=== PATIENT | male | born 1950 | race Caucasian/White ===

== ENCOUNTER 2016-09-24 07:07 | Day surgery (SDC) | payer OTHER ==
[~2016-09-24] VITALS: Ht 175.3 cm; Wt 92.3 kg
[2016-09-24] MEDS ORDERED: NEURONTIN600 MG/TAB PO (07:36)
[2016-09-24] MEDS ORDERED: SYNTHROID0.112 MG/T PO (07:37)
[2016-09-24] MEDS ORDERED: INDERAL 10MG10 MG PO (07:37)
[2016-09-24] MEDS ORDERED: REQUIP 1MG T1 MG/TAB PO (07:39)
[2016-09-24] MEDS ORDERED: PRILOSEC 20MG20 MG PO (07:39)
[2016-09-24] MEDS ORDERED: CELEXA40 MG PO (07:39)
[2016-09-24] MEDS ORDERED: COZAAR 50MG50 MG/TAB PO (07:40)
[2016-09-24] MEDS ORDERED: ULTRAM 50MG TAB50 MG (07:40)
[2016-09-24] MEDS ORDERED: ASPIRIN E.C. 8181 MG PO (07:41)
[2016-09-24 08:00] VITALS: BP 111/76; PULSE 44; TEMP 98
[2016-09-24 09:30] VITALS: BP 107/66; PULSE 58; TEMP 97.4
[2016-09-24 09:45] VITALS: BP 102/72; PULSE 55
[2016-09-24 14:43] VITALS: BP 108/64; PULSE 50
== END 2016-09-24 10:04 | disposition home or self-care (01) ==
LOC: SDCO 07:07
DX: Z12.11 Encounter for screening for malignant neoplasm of colon (principal); D12.0 Benign neoplasm of cecum; K57.30 Diverticulosis of large intestine without perforation or abscess without bleeding; I10 Essential (primary) hypertension; E11.9 Type 2 diabetes mellitus without complications; E07.9 Disorder of thyroid, unspecified; K21.9 Gastro-esophageal reflux disease without esophagitis
CPT/HCPCS: J2250; J3010; J7030

== ENCOUNTER 2017-06-01 08:45 | Inpatient (IN) | payer MEDICARE ==
[~2017-06-01] VITALS: Ht 175.3 cm; Wt 98.3 kg
[~2017-06-01 08:45] MED LIST: ASPIRIN E.C. 8181 MG PO; CELEXA40 MG PO; COZAAR 50MG50 MG/TAB PO; INDERAL 10MG10 MG PO; NEURONTIN600 MG/TAB PO; PRILOSEC 20MG20 MG PO; REQUIP 1MG T1 MG/TAB PO; SYNTHROID0.112 MG/T PO; ULTRAM 50MG TAB50 MG
[2017-06-01] MEDS ORDERED: CEPHALEXIN500 M1 PO (09:33)
[2017-06-01 10:17] LABS: BASO # 0.1 (0.0-0.2); BASO % 0.9 % (0.0-2.0); EOS # 0.2 (0.0-0.7); EOS % 2.3 % (0-4.0); GRAN # 6.9 (1.4-6.5); GRAN % 74.7 % (42.2-75.2); HEMATOCRIT 41.2 % (42.0-52.0); HEMOGLOBIN 13.7 g/dl (13.5-18.0); LYMPH # 1.4 (1.2-3.4); LYMPH % 15.1 % (20.0-51.0); MEAN CELL VOLUME 92 fl (80.0-100.0); MEAN CORPUSCULAR HEMOGLOBIN 31 pg (27.0-31.0); MEAN CORPUSCULAR HGB CONC 33 g/dl (33.0-37.0); MEAN PLATELET VOLUME 10.3 fl (7.4-10.4); MONO # 0.6 (0.1-0.6); MONO % 6.7 % (1.7-9.3); PLATELET COUNT 228 K/mm3 (130-400); RED BLOOD COUNT 4.48 M/mm3 (4.20-5.60); REDCELL DISTRIBUTION WIDTH-CV 13.9 % (11.5-14.5)
[2017-06-01 10:30] LABS: CALCIUM 9.2 mg/dL (8.4-10.2); CREATININE, serum 1.1 mg/dL (0.66-1.25)
[2017-06-01 13:53] LABS: MEAN CELL VOLUME 93 fl (80.0-100.0); MEAN CORPUSCULAR HGB CONC 32 g/dl (33.0-37.0); MEAN PLATELET VOLUME 10.3 fl (7.4-10.4); PLATELET COUNT 201 K/mm3 (130-400); RED BLOOD COUNT 3.32 M/mm3 (4.20-5.60); REDCELL DISTRIBUTION WIDTH-CV 13.9 % (11.5-14.5)
[2017-06-01 13:55] LABS: MEAN CORPUSCULAR HEMOGLOBIN 30 pg (27.0-31.0)
[2017-06-01 13:59] LABS: ALBUMIN 2.5 gm/dL (3.5-5.0); BILIRUBIN,TOTAL 0.4 mg/dL (0.0-1.0); TOTAL PROTEIN 5.2 gm/dL (6.4-8.2)
[2017-06-01 14:00] LABS: INR 1.2 (0.8-3.0); PROTHROMBIN TIME 13.5 SECONDS (9.7-12.8)
[2017-06-01 14:03] LABS: PARTIAL THROMBOPLASTIN TIME 29.3 SECONDS (26.0-37.0)
[2017-06-01 14:03] LABS: BILIRUBIN UNCONJUGATED 0.2 mg/dL (0.0-1.1); BILIRUBIN,DIRECT 0.2 mg/dL (0.0-0.4)
[2017-06-01] MEDS ORDERED: AMBIEN 5MG TABLE5 MG PO (14:57)
[2017-06-01] MEDS ORDERED: PRILOSEC 20MG20 MG PO (14:57)
[2017-06-01] MEDS ORDERED: CELEXA 20MG20 MG/TAB PO (14:58)
[2017-06-01] MEDS ORDERED: NEURONTIN300 MG/CAP PO (14:58)
[2017-06-01] MEDS ORDERED: INDERAL80 MG PO (14:59)
[2017-06-01] MEDS ORDERED: COZAAR 50MG50 MG/TAB PO (14:59)
[2017-06-01] MEDS ORDERED: MAVYRET PO (15:00)
[2017-06-01 18:41] VITALS: BP 131/85; PULSE 78; TEMP 97.3
[2017-06-01 18:45] VITALS: BP 131/85; PULSE 76; TEMP 97.3
[2017-06-01] MEDS ORDERED: ZOCOR 40MG40 MG PO (20:25)
[2017-06-01] MEDS ORDERED: LEVOXYL0.175 MG PO (20:26)
[2017-06-01] MEDS ORDERED: ULTRAM 50MG TAB50 MG PO (20:30)
[2017-06-01 20:55] LABS: BASO # 0.1 (0.0-0.2); BASO % 0.8 % (0.0-2.0); EOS # 0.2 (0.0-0.7); EOS % 2.5 % (0-4.0); GRAN # 5.2 (1.4-6.5); GRAN % 67.2 % (42.2-75.2); LYMPH # 1.8 (1.2-3.4); LYMPH % 23.1 % (20.0-51.0); MEAN CELL VOLUME 93 fl (80.0-100.0); MEAN CORPUSCULAR HGB CONC 33 g/dl (33.0-37.0); MEAN PLATELET VOLUME 10.5 fl (7.4-10.4); MONO # 0.5 (0.1-0.6); MONO % 6.1 % (1.7-9.3); PLATELET COUNT 192 K/mm3 (130-400); RED BLOOD COUNT 3.73 M/mm3 (4.20-5.60); REDCELL DISTRIBUTION WIDTH-CV 14.1 % (11.5-14.5)
[2017-06-01 20:56] LABS: HEMATOCRIT 34.6 % (42.0-52.0); HEMOGLOBIN 11.3 g/dl (13.5-18.0); MEAN CORPUSCULAR HEMOGLOBIN 30 pg (27.0-31.0)
[2017-06-01 21:54] VITALS: BP 141/86; PULSE 78; TEMP 98.3
[2017-06-02] VITALS (852 sets, daily range): BP systolic 102–148; BP diastolic 65–97; PULSE 65–81; TEMP 97.1–99.2; O2SAT 82–99
[2017-06-02 09:48] LABS: BASO # 0.1 (0.0-0.2); BASO % 0.9 % (0.0-2.0); EOS # 0.3 (0.0-0.7); EOS % 3.9 % (0-4.0); GRAN # 5.4 (1.4-6.5); GRAN % 63.4 % (42.2-75.2); LYMPH # 2.1 (1.2-3.4); MEAN CELL VOLUME 93 fl (80.0-100.0); MEAN CORPUSCULAR HGB CONC 33 g/dl (33.0-37.0); MEAN PLATELET VOLUME 10.3 fl (7.4-10.4); MONO # 0.6 (0.1-0.6); MONO % 7.3 % (1.7-9.3); PLATELET COUNT 194 K/mm3 (130-400); RED BLOOD COUNT 3.82 M/mm3 (4.20-5.60); REDCELL DISTRIBUTION WIDTH-CV 14.1 % (11.5-14.5)
[2017-06-02 09:51] LABS: HEMATOCRIT 35.5 % (42.0-52.0); HEMOGLOBIN 11.6 g/dl (13.5-18.0); MEAN CORPUSCULAR HEMOGLOBIN 30 pg (27.0-31.0)
[2017-06-02 09:52] LABS: CALCIUM 8.8 mg/dL (8.4-10.2); CREATININE, serum 0.82 mg/dL (0.66-1.25); PHOSPHOROUS 2.9 mg/dL (2.5-4.5); POTASSIUM 3.8 mmol/L (3.4-5.0)
[2017-06-03] VITALS (911 sets, daily range): BP systolic 99–119; BP diastolic 62–90; PULSE 57–70; TEMP 97.3–98.7; O2SAT 83–100
[2017-06-03 05:31] LABS: BASO # 0.1 (0.0-0.2); BASO % 0.6 % (0.0-2.0); EOS # 0.3 (0.0-0.7); EOS % 4.3 % (0-4.0); GRAN # 4.8 (1.4-6.5); GRAN % 61.6 % (42.2-75.2); LYMPH # 2.1 (1.2-3.4); LYMPH % 26.9 % (20.0-51.0); MEAN CELL VOLUME 93 fl (80.0-100.0); MEAN CORPUSCULAR HGB CONC 33 g/dl (33.0-37.0); MEAN PLATELET VOLUME 10.2 fl (7.4-10.4); MONO # 0.5 (0.1-0.6); MONO % 6.2 % (1.7-9.3); PLATELET COUNT 179 K/mm3 (130-400); RED BLOOD COUNT 3.78 M/mm3 (4.20-5.60); REDCELL DISTRIBUTION WIDTH-CV 14.1 % (11.5-14.5)
[2017-06-03 05:34] LABS: HEMATOCRIT 35.3 % (42.0-52.0); HEMOGLOBIN 11.6 g/dl (13.5-18.0); MEAN CORPUSCULAR HEMOGLOBIN 31 pg (27.0-31.0)
[2017-06-03 05:47] LABS: CALCIUM 8.7 mg/dL (8.4-10.2); CREATININE, serum 0.8 mg/dL (0.66-1.25); MAGNESIUM 1.9 mg/dL (1.6-2.3)
[2017-06-04 00:01] VITALS: BP 117/66; PULSE 77; TEMP 97.8
[2017-06-04 03:09] VITALS: BP 109/63; PULSE 69; TEMP 98.2
[2017-06-04 07:26] LABS: BASO # 0.1 (0.0-0.2); BASO % 1.3 % (0.0-2.0); EOS # 0.3 (0.0-0.7); GRAN # 3.2 (1.4-6.5); GRAN % 50.7 % (42.2-75.2); LYMPH # 2.3 (1.2-3.4); LYMPH % 35.3 % (20.0-51.0); MEAN CELL VOLUME 92 fl (80.0-100.0); MEAN CORPUSCULAR HGB CONC 33 g/dl (33.0-37.0); MEAN PLATELET VOLUME 10.7 fl (7.4-10.4); MONO # 0.5 (0.1-0.6); MONO % 7.4 % (1.7-9.3); PLATELET COUNT 174 K/mm3 (130-400); RED BLOOD COUNT 3.63 M/mm3 (4.20-5.60); REDCELL DISTRIBUTION WIDTH-CV 13.8 % (11.5-14.5)
[2017-06-04 07:31] LABS: HEMATOCRIT 33.4 % (42.0-52.0); HEMOGLOBIN 10.9 g/dl (13.5-18.0); MEAN CORPUSCULAR HEMOGLOBIN 30 pg (27.0-31.0)
[2017-06-04 07:32] LABS: CALCIUM 8.6 mg/dL (8.4-10.2); CREATININE, serum 1.01 mg/dL (0.66-1.25); PHOSPHOROUS 3.7 mg/dL (2.5-4.5)
[2017-06-04 08:40] VITALS: BP 136/85; PULSE 63; TEMP 98.4
== END 2017-06-04 10:14 | disposition home or self-care (01) | DRG 305 ==
LOC: COL.ER 08:45 → SURG 15:17 → ICU 15:17 → SURG 18:06 → MEDICAL 18:06 → ICU 06-02 08:10 → MEDICAL 06-02 08:10 → ICU 06-02 08:10 → MEDICAL 06-03 16:35
PROVIDERS: Emergency Medicine; Internal Medicine; Nurse Practitioner Family
PROC: 2Y41X5Z Packing of Nasal Region using Packing Material (ICD-10-PCS; principal; 2017-06-01)
DX: I10 Essential (primary) hypertension (principal); E44.1 Mild protein-calorie malnutrition; R04.0 Epistaxis; B18.2 Chronic viral hepatitis C; F17.210 Nicotine dependence, cigarettes, uncomplicated; D50.0 Iron deficiency anemia secondary to blood loss (chronic); F12.10 Cannabis abuse, uncomplicated; R73.9 Hyperglycemia, unspecified
CPT/HCPCS: 99223-AI; 99231-AI; 99239; J0360; J1170; J2405; J7030; J7050

== ENCOUNTER → 2017-07-19 | Outpatient (CLI) | payer MEDICARE ==
[~2017-07-19] MED LIST changes: +AMBIEN 5MG TABLE5 MG PO; +CELEXA 20MG20 MG/TAB PO; +CEPHALEXIN500 M1 PO; +INDERAL80 MG PO; +LEVOXYL0.175 MG PO; +MAVYRET PO; +NEURONTIN300 MG/CAP PO; +ULTRAM 50MG TAB50 MG PO; +ZOCOR 40MG40 MG PO
[2017-07-19 13:23] LABS: BASO # 0.1 (0.0-0.2); BASO % 1.1 % (0.0-2.0); EOS # 0.2 (0.0-0.7); EOS % 3.9 % (0-4.0); GRAN # 3.4 (1.4-6.5); LYMPH # 1.5 (1.2-3.4); LYMPH % 27.1 % (20.0-51.0); MEAN CELL VOLUME 83 fl (80.0-100.0); MEAN CORPUSCULAR HGB CONC 31 g/dl (33.0-37.0); MEAN PLATELET VOLUME 10.6 fl (7.4-10.4); MONO # 0.4 (0.1-0.6); MONO % 7.7 % (1.7-9.3); PLATELET COUNT 196 K/mm3 (130-400); RED BLOOD COUNT 3.62 M/mm3 (4.20-5.60); REDCELL DISTRIBUTION WIDTH-CV 16.1 % (11.5-14.5)
[2017-07-19 13:24] LABS: CHOLESTEROL RISK RATIO 3.3
[2017-07-19 13:27] LABS: HEMOGLOBIN 9.3 g/dl (13.5-18.0); MEAN CORPUSCULAR HEMOGLOBIN 26 pg (27.0-31.0)
[2017-07-19 13:55] LABS: TSH w REFLEX 8.07 uIU/mL (0.465-4.680)
== END ==
LOC: COL.LAB 12:27
PROVIDERS: Family Medicine
DX: Z13.220 Encounter for screening for lipoid disorders (principal); Z13.1 Encounter for screening for diabetes mellitus; D64.9 Anemia, unspecified; E03.9 Hypothyroidism, unspecified

== ENCOUNTER → 2017-08-22 | Outpatient (CLI) | payer MEDICARE ==
[2017-08-22 14:04] LABS: PSA-TOTAL 0.58 ng/mL (0-4)
[2017-08-23 00:24] LABS: FOLATE (FOLIC ACID) 12.8 ng/mL (7.0-31.4)
== END ==
LOC: COL.LAB 11:59
PROVIDERS: Family Medicine
DX: D64.9 Anemia, unspecified (principal); R33.9 Retention of urine, unspecified; B19.20 Unspecified viral hepatitis C without hepatic coma
CPT/HCPCS: G0103

== ENCOUNTER → 2017-08-25 | Outpatient (CLI) | payer MEDICARE | LOC: BHSO 13:03 | DX: F43.10 Post-traumatic stress disorder, unspecified (principal) ==

== ENCOUNTER 2017-09-07 13:33 | Day surgery (SDC) | payer MEDICARE ==
[~2017-09-07] VITALS: Ht 172.7 cm; Wt 94.3 kg
[2017-09-07 14:23] VITALS: BP 128/83; PULSE 52; TEMP 97.5
[2017-09-07] MEDS ORDERED: ASPIRIN 81M81 MG/TA2 PO (14:32)
[2017-09-07] MEDS ORDERED: CELEXA 20MG20 MG/TAB PO (14:33)
[2017-09-07] MEDS ORDERED: LEVOXYL0.175 MG PO (14:33)
[2017-09-07] MEDS ORDERED: COZAAR 50MG50 MG/TAB PO (14:34)
[2017-09-07] MEDS ORDERED: INDERAL80 MG PO (14:35)
[2017-09-07] MEDS ORDERED: PRILOSEC 20MG20 MG PO (14:35)
[2017-09-07] MEDS ORDERED: AMBIEN 5MG TABLE5 MG PO (14:36)
[2017-09-07] MEDS ORDERED: ZOCOR 20MG20 MG PO (14:36)
[2017-09-07] MEDS ORDERED: MAVYRET PO (14:38)
[2017-09-07] MEDS ORDERED: NEURONTIN600 MG/TAB PO (14:38)
[2017-09-07 15:37] VITALS: BP 121/53; PULSE 63
[2017-09-07 15:52] VITALS: BP 116/77; PULSE 57
[2017-09-07 16:07] VITALS: BP 110/79; PULSE 51
== END 2017-09-07 16:20 | disposition home or self-care (01) ==
LOC: SDCO 13:33
DX: Z12.11 Encounter for screening for malignant neoplasm of colon (principal); Z86.010 Personal history of colon polyps; D64.9 Anemia, unspecified; K64.1 Second degree hemorrhoids; K57.30 Diverticulosis of large intestine without perforation or abscess without bleeding; I10 Essential (primary) hypertension; E11.9 Type 2 diabetes mellitus without complications; K58.9 Irritable bowel syndrome, unspecified; K21.9 Gastro-esophageal reflux disease without esophagitis; E07.9 Disorder of thyroid, unspecified
CPT/HCPCS: J2250; J3010; J7030

== ENCOUNTER 2017-11-27 17:26 | Inpatient (IN) | payer MEDICARE ==
[~2017-11-27] VITALS: Ht 175.3 cm; Wt 96.6 kg
[2017-11-27] VITALS (88 sets, daily range): BP systolic 110; BP diastolic 73; PULSE 65; TEMP 97.8; O2SAT 80–100
[~2017-11-27 17:26] MED LIST changes: +ASPIRIN 81M81 MG/TA2 PO; +MAVYRET 100-401 EACH PO
[2017-11-27 18:03] LABS: BASO # 0.1 (0.0-0.2); BASO % 1.6 % (0.0-2.0); EOS # 0.3 (0.0-0.7); EOS % 4.5 % (0-4.0); GRAN # 3.3 (1.4-6.5); GRAN % 57.4 % (42.2-75.2); HEMATOCRIT 30.9 % (42.0-52.0); HEMOGLOBIN 9.3 g/dl (13.5-18.0); LYMPH # 1.6 (1.2-3.4); MEAN CELL VOLUME 71 fl (80.0-100.0); MEAN CORPUSCULAR HEMOGLOBIN 21 pg (27.0-31.0); MEAN CORPUSCULAR HGB CONC 30 g/dl (33.0-37.0); MEAN PLATELET VOLUME 10.6 fl (7.4-10.4); MONO # 0.5 (0.1-0.6); MONO % 8.3 % (1.7-9.3); PLATELET COUNT 205 K/mm3 (130-400); RED BLOOD COUNT 4.34 M/mm3 (4.20-5.60); REDCELL DISTRIBUTION WIDTH-CV 20.8 % (11.5-14.5)
[2017-11-27 18:17] LABS: ALANINE AMINOTRANSFERASE 17 U/L (21-72); ALBUMIN 3.8 gm/dL (3.5-5.0); ALKALINE PHOSPHATASE 71 U/L (50-136); ANION GAP 10 mmol/L (7-16); AST,SGOT 18 U/L (15-37); BILIRUBIN,TOTAL 0.5 mg/dL (0.0-1.0); BLOOD UREA NITROGEN 18 mg/dL (9-20); CALCIUM 8.8 mg/dL (8.4-10.2); CARBON DIOXIDE 26 mmol/L (22-30); CHLORIDE 105 mmol/L (98-107); CREATININE, serum 1.27 mg/dL (0.66-1.25); GLUCOSE 115 mg/dL (74-106); MAGNESIUM 2.2 mg/dL (1.6-2.3); SODIUM 141 mmol/L (137-145); TOTAL PROTEIN 7.5 gm/dL (6.4-8.2)
[2017-11-27 18:19] LABS: ALCOHOL(ethanol),MEDICAL < 10 mg/dL; C-REACTIVE PROTEIN < 0.5 mg/dL (0.0-0.9)
[2017-11-27 18:28] LABS: TROPONIN-I < 0.012 ng/mL (0.000-0.034)
[2017-11-27 18:30] LABS: PROLACTIN 21.3 ng/mL (3.7-17.9)
[2017-11-27 18:38] LABS: COLLECTION METHOD CATHETER
[2017-11-27 18:41] LABS: TRICYCLIC ANTIDEPRESS URINE NEGATIVE
[2017-11-27 18:43] LABS: MUCOUS Present /lpf; PH 5 (5-8); SQUAMOUS EPITHELIAL None Seen /hpf; URINE APPEARANCE Clear; URINE BACTERIA Rare /hpf; URINE BILIRUBIN Negative (NEGATIVE); URINE BLOOD Negative (NEGATIVE); URINE COLOR Yellow; URINE GLUCOSE Negative (NEGATIVE); URINE KETONE Negative (NEGATIVE); URINE LEUKOCYTE ESTERASE Negative (NEGATIVE); URINE NITRATE Negative (NEGATIVE); URINE PROTEIN(semi-quant) Negative (NEGATIVE); URINE RBC 0-2 /hpf; URINE UROBILINOGEN >=4.0 mg/dL (NEGATIVE)
[2017-11-27 19:13] LABS: ARTERIAL BLD GAS O2 SATURATION 94.6 % (92-100); ARTERIAL BLOOD GAS BASE EXCESS -3.2 (-2-2); ARTERIAL BLOOD GAS HCO3 21.8 meq/L (22-26); ARTERIAL BLOOD GAS PCO2 38.9 mmHg (35-45); ARTERIAL BLOOD GAS PO2 81.2 mmHg (80-100); ARTERIAL BLOOD GAS pH 7.37 (7.35-7.45)
[2017-11-27] MEDS ORDERED: VALTREX 50500 MG/TAB PO (19:16)
[2017-11-27] MEDS ORDERED: MINIPRESS 1M1 MG/CAP PO (19:19)
[2017-11-27] MEDS ORDERED: LYRICA 100MG C100 M1 PO (19:21)
[2017-11-27 21:10] LABS: ACETAMINOPHEN < 10 ug/mL (10-30); SALICYLATE < 1.0 mg/dL
[2017-11-27 21:29] LABS: PROTHROMBIN TIME 11.8 SECONDS (9.7-12.8)
[2017-11-27 22:26] LABS: TROPONIN-I < 0.012 ng/mL (0.000-0.034)
[2017-11-27] MEDS ORDERED: CELEXA 20MG20 MG/TAB PO (23:02)
[2017-11-28] VITALS (350 sets, daily range): BP systolic 122–143; BP diastolic 73–89; PULSE 52–77; TEMP 97.7–98.6; O2SAT 60–100
[2017-11-28 06:10] LABS: BASO # 0.1 (0.0-0.2); BASO % 1.2 % (0.0-2.0); EOS # 0.3 (0.0-0.7); EOS % 5.2 % (0-4.0); GRAN # 2.5 (1.4-6.5); GRAN % 52.3 % (42.2-75.2); LYMPH # 1.6 (1.2-3.4); LYMPH % 33.8 % (20.0-51.0); MEAN CELL VOLUME 72 fl (80.0-100.0); MEAN CORPUSCULAR HGB CONC 30 g/dl (33.0-37.0); MEAN PLATELET VOLUME 9.7 fl (7.4-10.4); MONO # 0.4 (0.1-0.6); MONO % 7.3 % (1.7-9.3); PLATELET COUNT 169 K/mm3 (130-400); RED BLOOD COUNT 3.93 M/mm3 (4.20-5.60); REDCELL DISTRIBUTION WIDTH-CV 20.6 % (11.5-14.5)
[2017-11-28 06:15] LABS: HEMATOCRIT 28.4 % (42.0-52.0); HEMOGLOBIN 8.4 g/dl (13.5-18.0); MEAN CORPUSCULAR HEMOGLOBIN 21 pg (27.0-31.0)
[2017-11-28 07:07] LABS: BILIRUBIN,TOTAL 0.5 mg/dL (0.0-1.0); CREATININE, serum 1.05 mg/dL (0.66-1.25); POTASSIUM 4.2 mmol/L (3.4-5.0); TOTAL PROTEIN 6.2 gm/dL (6.4-8.2)
[2017-11-28 07:24] LABS: PROLACTIN 12.7 ng/mL (3.7-17.9)
[2017-11-28 16:01] LABS: FOLATE (FOLIC ACID) 10.9 ng/mL (7.0-31.4)
[2017-11-29 03:08] VITALS: BP 147/89; PULSE 64; TEMP 98.6
[2017-11-29 07:15] LABS: MEAN CELL VOLUME 70 fl (80.0-100.0); MEAN CORPUSCULAR HGB CONC 31 g/dl (33.0-37.0); MEAN PLATELET VOLUME 10.8 fl (7.4-10.4); PLATELET COUNT 205 K/mm3 (130-400); RED BLOOD COUNT 4.37 M/mm3 (4.20-5.60); REDCELL DISTRIBUTION WIDTH-CV 20.8 % (11.5-14.5); RETIC # 0.07 M/mm3 (0.02-0.16); RETIC % 1.7 % (0.5-3.52)
[2017-11-29 07:18] LABS: HEMATOCRIT 30.6 % (42.0-52.0); HEMOGLOBIN 9.5 g/dl (13.5-18.0); MEAN CORPUSCULAR HEMOGLOBIN 22 pg (27.0-31.0)
[2017-11-29 07:25] LABS: CALCIUM 8.9 mg/dL (8.4-10.2); CREATININE, serum 1.16 mg/dL (0.66-1.25); MAGNESIUM 2.1 mg/dL (1.6-2.3)
[2017-11-29 07:29] LABS: IRON,SERUM 21 ug/dL (35-150)
[2017-11-29 07:38] LABS: TOTAL IRON BINDING CAPACITY 478 ug/dL (261-462)
[2017-11-29 07:49] LABS: FERRITIN 6 ng/mL (18-464)
[2017-11-29 08:05] VITALS: BP 150/96; PULSE 51; TEMP 98.7
[2017-11-29 09:20] LABS: BAND 2 % (0-10); EOSINOPHIL 3 % (0-4); HYPOCHROMIA 2+; LYMPHOCYTE 33 % (20.0-51.0); NEUTROPHILS 58 % (42.0-75.2)
[2017-11-29 09:21] LABS: PLATELET ESTIMATE NORMAL (NORMAL)
[2017-11-29 12:29] VITALS: BP 141/88; PULSE 63; TEMP 97.9
[2017-11-29 15:27] VITALS: BP 141/81; PULSE 57; TEMP 98.2
[2017-11-29 19:16] VITALS: BP 139/89; PULSE 56; TEMP 98.8
[2017-11-30 01:10] VITALS: BP 136/76; PULSE 56; TEMP 98.6
[2017-11-30 04:31] VITALS: BP 142/87; PULSE 64
[2017-11-30 07:50] VITALS: BP 119/76; PULSE 105; TEMP 98.2
[2017-11-30 08:00] VITALS: BP 140/82; PULSE 60; TEMP 98.2
[2017-11-30] MEDS ORDERED: LYRICA 100MG C100 M1 PO (09:50)
[2017-11-30] MEDS ORDERED: KEPPRA 500MG500 MG PO (09:51)
[2017-11-30] MEDS ORDERED: CYTOMEL 5MC5 MCG/TAB PO (09:52)
[2017-11-30] MEDS ORDERED: FERROUSAL325 MG PO (09:58)
== END 2017-11-30 12:13 | disposition home or self-care (01) | DRG 917 ==
LOC: COL.ER 17:26 → ICU 18:53 → MEDICAL 11-28 10:34 → ICU 11-28 10:35 → MEDICAL 11-28 12:44
PROVIDERS: Emergency Medicine; Hospitalist; Internal Medicine; Nurse Practitioner Family
DX: T40.7X1A Poisoning by cannabis (derivatives), accidental (unintentional), initial encounter (principal); G92 Toxic encephalopathy; N17.9 Acute kidney failure, unspecified; T43.624A Poisoning by amphetamines, undetermined, initial encounter; T38.1X6A Underdosing of thyroid hormones and substitutes, initial encounter; Z66 Do not resuscitate; I10 Essential (primary) hypertension; F43.12 Post-traumatic stress disorder, chronic; F17.210 Nicotine dependence, cigarettes, uncomplicated; D50.9 Iron deficiency anemia, unspecified; Z91.14 Patient's other noncompliance with medication regimen; B18.2 Chronic viral hepatitis C
CPT/HCPCS: 99222-AI; 99233-AI; 99239; A9585; G0378; J1644; J1953; J2916; J3411; J3475; J7030; J7050

== ENCOUNTER 2019-12-24 12:33 | Emergency (ER) | payer MEDICARE ==
[~2019-12-24] VITALS: Ht 175.3 cm; Wt 90.9 kg
[~2019-12-24 12:33] MED LIST changes: +CYTOMEL 5MC5 MCG/TAB PO; +FERROUSAL325 MG PO; +KEPPRA 500MG500 MG PO; +LYRICA 100MG C100 M1 PO; +MINIPRESS 1M1 MG/CAP PO; +VALTREX 50500 MG/TAB PO
[2019-12-24 12:49] VITALS: TEMP 98.3
[2019-12-24 13:58] LABS: BASO # 0.1 (0.0-0.2); BASO % 0.7 % (0.0-2.0); EOS # 0.2 (0.0-0.7); EOS % 3.6 % (0-4.0); GRAN # 4.4 (1.4-6.5); GRAN % 65.2 % (42.2-75.2); HEMATOCRIT 44.6 % (42.0-52.0); HEMOGLOBIN 14.8 g/dl (13.5-18.0); LYMPH # 1.4 (1.2-3.4); MEAN CELL VOLUME 90 fl (80.0-100.0); MEAN CORPUSCULAR HEMOGLOBIN 30 pg (27.0-31.0); MEAN CORPUSCULAR HGB CONC 33 g/dl (33.0-37.0); MEAN PLATELET VOLUME 10.3 fl (7.4-10.4); MONO # 0.6 (0.1-0.6); MONO % 9.2 % (1.7-9.3); PLATELET COUNT 181 K/mm3 (130-400); RED BLOOD COUNT 4.98 M/mm3 (4.20-5.60); REDCELL DISTRIBUTION WIDTH-CV 15.2 % (11.5-14.5)
[2019-12-24 14:38] LABS: ALANINE AMINOTRANSFERASE 14 U/L (4-49); ALBUMIN 4.4 gm/dL (3.5-5.0); ALKALINE PHOSPHATASE 99 U/L (50-136); ANION GAP 9 mmol/L (7-16); AST,SGOT 25 U/L (15-37); BILIRUBIN,TOTAL 0.8 mg/dL (0.0-1.0); BLOOD UREA NITROGEN 19 mg/dL (9-20); C-REACTIVE PROTEIN 1.2 mg/dL (0.0-0.9); CALCIUM 9.5 mg/dL (8.4-10.2); CARBON DIOXIDE 27 mmol/L (22-30); CHLORIDE 103 mmol/L (98-107); CREATININE, serum 1.44 (0.66-1.25); GLUCOSE 110 mg/dL (74-106); LIPASE 83 U/L (23-300); POTASSIUM 4.1 mmol/L (3.4-5.0); SODIUM 139 mmol/L (137-145); TOTAL PROTEIN 8.2 gm/dL (6.4-8.2)
[2019-12-24 14:49] LABS: TROPONIN-I < 0.012 ng/mL (0.000-0.035)
[2019-12-24] MEDS ORDERED: FLOMAX 0.40.4 MG/CAP PO (14:54)
[2019-12-24 16:30] VITALS: BP 126/96; PULSE 83
== END 2019-12-24 16:38 | disposition home or self-care (01) ==
LOC: COL.ER 12:33
PROVIDERS: Nurse Practitioner
DX: R05 Cough (principal); R10.10 Upper abdominal pain, unspecified; R07.89 Other chest pain; I10 Essential (primary) hypertension; F12.90 Cannabis use, unspecified, uncomplicated; E07.9 Disorder of thyroid, unspecified; F17.210 Nicotine dependence, cigarettes, uncomplicated; Z88.8 Allergy status to other drugs, medicaments and biological substances; Z79.82 Long term (current) use of aspirin